=== PATIENT | female | born 1995 | race African-American/Black ===

== ENCOUNTER 2018-01-11 17:05 | Emergency (ER) | payer OTHER ==
[2018-01-11] MEDS: KETOROLAC 30 MG/ML VIAL (J1885) IV (19:24)
[2018-01-11] MEDS: NS 500 ML IV (19:24)
[2018-01-11 20:22] LABS: HEMATOCRIT 37.6 % (36.0-47.0); HEMOGLOBIN 11.8 g/dl (12.0-16.0); MEAN CORPUSCULAR HEMOGLOBIN 25.8 pg (27.0-33.0); MEAN CORPUSCULAR HGB CONC 31.4 g/dl (32.0-36.5); MEAN CORPUSCULAR VOLUME 82.1 fl (80.0-96.0); PLATELET COUNT, AUTOMATED 471 10^3/uL (150-450); RED BLOOD COUNT 4.58 10^6/uL (4.00-5.40); RED CELL DISTRIBUTION WIDTH 13.5 % (11.5-14.5); WHITE BLOOD COUNT 10.8 10^3/uL (4.0-10.0)
[2018-01-11 20:25] LABS: POSITIVE DIFF POS FLAG
[2018-01-11 20:26] LABS: ADD MANUAL DIFFER YES; DIFF SLIDE NUMBER 302
[2018-01-11 20:34] LABS: ANION GAP 8 MEQ/L (8-16); CALCIUM LEVEL 9.1 MG/DL (8.5-10.1); CARBON DIOXIDE LEVEL 29 MEQ/L (21-32); CHLORIDE LEVEL 103 MEQ/L (98-107); CPK CREATINE PHOSPHOKINASE 50 U/L (26-192); CREATININE FOR GFR 0.73 MG/DL (0.55-1.30); GLOMERULAR FILTRATION RATE > 60.0 (>60); GLUCOSE, FASTING 91 MG/DL (70-100); POTASSIUM SERUM 4.2 MEQ/L (3.5-5.1); SODIUM LEVEL 140 MEQ/L (136-145); TROPONIN I < 0.02 NG/ML (< 0.10)
[2018-01-11 20:40] LABS: BLOOD UREA NITROGEN 9 MG/DL (7-18)
[2018-01-11 21:00] LABS: BASOPHILS 1 % (0-4); EOSINOPHILS 18 % (0-5); LYMPHOCYTES 43 % (16-52); MONOCYTES 5 % (0-8); NEUTROPHILS 33 % (35-75); PLATELET ESTIMATE INCREASED (NORMAL)
[2018-01-11] MEDS: MORPHINE 2 MG/ML 1ML SYRINGE (J2270) IV (21:00)
[2018-01-11 21:32] LABS: CONTROL LINE HCG INT CTR LINE PRESENT; HCG, SERUM QUALITATIVE NEGATIVE (NEGATIVE)
[2018-01-11] MEDS ORDERED: ISOVUE-370 76% 100ML VIAL (Q9967) As Ordered (21:59)
== END 2018-01-11 23:25 | disposition home or self-care (01) ==
LOC: M ED 17:05
DX: M94.0 Chondrocostal junction syndrome [Tietze] (principal)
CPT/HCPCS: Q9967

== ENCOUNTER → 2018-03-12 | Outpatient (REF) | payer OTHER | LOC: M SFHCLERA 12:01 | DX: J02.9 Acute pharyngitis, unspecified (principal) ==

== ENCOUNTER → 2018-08-29 | Outpatient (REF) | payer OTHER | LOC: M SFHCLERA 17:20 | DX: R30.0 Dysuria (principal) ==

== ENCOUNTER 2018-10-28 01:46 | Emergency (ER) | payer OTHER ==
[2018-10-28] MEDS: NS 500 ML IV (03:14)
[2018-10-28] MEDS: MORPHINE 4 MG/ML 1ML VIAL/SYRINGE (J2270) IV (03:15)
[2018-10-28 03:30] LABS: CONTROL LINE HCG INT CTR LINE PRESENT; HCG, SERUM QUALITATIVE NEGATIVE (NEGATIVE)
[2018-10-28 03:40] LABS: ALBUMIN 3.4 GM/DL (3.2-5.2); ALBUMIN/GLOBULIN RATIO 0.81 (1.00-1.93); ALKALINE PHOSPHATASE 176 U/L (45-117); ALT/SGPT 27 U/L (12-78); ANION GAP 9 MEQ/L (8-16); AST/SGOT 13 U/L (7-37); BILIRUBIN,DIRECT < 0.1 MG/DL (0.0-0.2); BILIRUBIN,TOTAL 0.2 MG/DL (0.2-1.0); BLOOD UREA NITROGEN 8 MG/DL (7-18); CALCIUM LEVEL 8.6 MG/DL (8.5-10.1); CARBON DIOXIDE LEVEL 24 MEQ/L (21-32); CHLORIDE LEVEL 107 MEQ/L (98-107); CREATININE FOR GFR 0.77 MG/DL (0.55-1.30); GLOMERULAR FILTRATION RATE > 60.0 (>60); GLUCOSE, FASTING 106 MG/DL (70-100); LIPASE 150 U/L (73-393); POTASSIUM SERUM 3.9 MEQ/L (3.5-5.1); SODIUM LEVEL 140 MEQ/L (136-145); TOTAL PROTEIN 7.6 GM/DL (6.4-8.2)
== END 2018-10-28 08:16 | disposition home or self-care (01) ==
LOC: M ED 01:46
DX: K80.20 Calculus of gallbladder without cholecystitis without obstruction (principal); I10 Essential (primary) hypertension; Z86.19 Personal history of other infectious and parasitic diseases; Z79.899 Other long term (current) drug therapy
CPT/HCPCS: J2270

== ENCOUNTER 2018-11-08 10:04 | Day surgery (SDC) | payer OTHER ==
[~2018-11-08] VITALS: Ht 167.6 cm; Wt 133.4 kg
[~2018-11-08 10:04] MED LIST: AMLO10TA4 PO; BCP PO; BENA25CA4 PO; KETO10TAB PO; LOSA25TA33 PO; NORG1TAB PO; NS 1,000 ML IV ONE; OMEP20CA3 PO
[2018-11-08] MEDS ORDERED: fentaNYL 100 MCG/2 ML INJECTION (J3010) As Ordered ONE (10:47)
[2018-11-08] MEDS ORDERED: LIDOCAINE 2% INJ 100 MG/5 ML SDV (FOR ANES.) As Ordered ONE (10:47)
[2018-11-08] MEDS ORDERED: PROPOFOL 200 MG/20 ML VIAL As Ordered ONE ×2 (10:47→11:47)
--- NOTE | 2018-11-08 11:49 | ROOR ---
Patient Name: Cam Cristina Procedure Date: 11/08/2018 11:34 AM Date of : 1995 Age: 23 Room: [facility] Gender: Female Note Status: Finalized Procedure: Upper GI endoscopy Indications: Previously treated for Helicobacter pylori Providers: DO Eliot Boogie MD: KAELA SHERWOOD MD Requesting Provider: Medicines: Propofol per Anesthesia Complications: No immediate complications. Procedure: Pre-Anesthesia Assessment: - Prior to the procedure, a History and Physical was performed, and patient medications and allergies were reviewed. The patient is competent. The risks and benefits of the procedure and the sedation options and risks were discussed with the patient. All questions were answered and informed consent was obtained. Patient identification and proposed procedure were verified by the physician, the nurse, the anesthesiologist and the metallurgical engineering technician in the endoscopy suite. Mental Status Examination: alert and oriented. Airway Examination: normal oropharyngeal airway and neck mobility. Respiratory Examination: clear to auscultation. CV Examination: normal. Prophylactic Antibiotics: The patient does not require prophylactic antibiotics. Prior Anticoagulants: The patient has taken no previous anticoagulant or antiplatelet agents. ASA Grade Assessment: II - A patient with mild systemic disease. After reviewing the risks and benefits, the patient was deemed in satisfactory condition to undergo the procedure. The anesthesia plan was to use monitored anesthesia care (MAC). Immediately prior to administration of medications, the patient was re-assessed for adequacy to receive sedatives. The heart rate, respiratory rate, oxygen saturations, blood pressure, adequacy of pulmonary ventilation, and response to care were monitored throughout the procedure. The physical status of the patient was re-assessed after the procedure. The Endoscope was introduced through the mouth, and advanced to the second part of duodenum. The upper GI endoscopy was accomplished without difficulty. The patient tolerated the procedure well. Findings: Diffuse minimal inflammation characterized by erythema was found in the prepyloric region of the stomach. Biopsies were taken with a cold forceps for Helicobacter pylori testing. Estimated blood loss was minimal. The exam was otherwise without abnormality. Impression: - Gastritis. Biopsied. - The examination was otherwise normal. Recommendation: - Patient has a contact number available for emergencies. The signs and symptoms of potential delayed complications were discussed with the patient. Return to normal activities tomorrow. Written discharge instructions were provided to the patient. - Return to my office in 1 week. - Telephone my office for pathology results in 1 week. Tristen Starks DO 11/08/2018 11:48:42 AM This report has been signed electronically. Number of Addenda: 0 Note Initiated On: 11/08/2018 11:34 AM Estimated Blood Loss: Estimated blood loss was minimal.
[2018-11-08 12:15] VITALS: BP 114/92
== END 2018-11-08 13:00 | disposition home or self-care (01) ==
LOC: M OPP 10:04
PROVIDERS: ATTEND Surgery
DX: K29.70 Gastritis, unspecified, without bleeding (principal); B96.81 Helicobacter pylori [H. pylori] as the cause of diseases classified elsewhere; R12 Heartburn; K80.20 Calculus of gallbladder without cholecystitis without obstruction; I10 Essential (primary) hypertension; G47.9 Sleep disorder, unspecified; Z79.899 Other long term (current) drug therapy
CPT/HCPCS: 43239; 88305; J3010

== ENCOUNTER → 2019-06-10 | Outpatient (REF) | payer OTHER ==
[~2019-06-10] MED LIST changes: -AMLO10TA4 PO; +AMLO10TA5 PO; +LOSA25TA14 PO; -LOSA25TA33 PO; -NS 1,000 ML IV ONE; -OMEP20CA3 PO; +OMEP20CA4 PO
== END ==
LOC: M SFHCLERA 11:53
PROVIDERS: ATTEND Nurse Practitioner Family
DX: J02.9 Acute pharyngitis, unspecified (principal)

== ENCOUNTER → 2019-07-09 | Outpatient (REF) | payer OTHER | LOC: M SFHCLERA 12:23 | PROVIDERS: ATTEND Nurse Practitioner Family | DX: J02.9 Acute pharyngitis, unspecified (principal) ==

== ENCOUNTER → 2019-09-22 | Outpatient (REF) | payer OTHER ==
[~2019-09-22] MED LIST changes: -NORG1TAB PO; +NORG1TAB4 PO
== END ==
LOC: M SFHCLERA 10:44
PROVIDERS: ATTEND Physician Assistant
DX: R50.9 Fever, unspecified (principal)

== ENCOUNTER → 2019-10-16 | Outpatient (CLI) | payer OTHER ==
--- NOTE | 2019-10-22 12:00 | SLEEPHOME ---
DATE OF PROCEDURE: 10/16/2019 ORDERED BY: Dr. Quintana Nocturnal home sleep testing was performed due to concern for the obstructive sleep apnea syndrome in this patient with a history of snoring. For testing, a nocturnal T3 respiratory monitoring device was used. Continuous record made of pulse, oxygen saturation, airflow, chest and abdominal strain, and body position. 9 hours and 59 minutes of data were reviewed. There were 6 hours and 29 minutes marked as time in bed. During the interval marked time in bed, there were 53 respiratory events identified of 10 seconds in duration or greater for a respiratory event index of 8.2. The events were primarily obstructive. Six mixed and central apneas were seen. Baseline pulse rate 66 beats per minute, pulse rate ranged 76-118. Baseline saturation 96%. Saturations fell to 85%. Testing was performed in both supine and nonsupine positions. IMPRESSION: Abnormal home sleep testing with repetitive respiratory events and oxygen desaturations to 85% with a respiratory event index of 8.2 is consistent with the obstructive sleep apnea syndrome. RECOMMENDATIONS: The patient should be encouraged to undergo formal sleep evaluation.
== END ==
LOC: M SLEEP HO 10-12 09:39
PROVIDERS: ATTEND Internal Medicine Cardiovascular Disease
DX: R06.83 Snoring (principal)

== ENCOUNTER 2019-11-01 17:48 | Emergency (ER) | payer OTHER ==
[~2019-11-01] VITALS: Ht 167.6 cm; Wt 140.3 kg
[~2019-11-01 17:48] MED LIST changes: +OMEP-172 PO; -OMEP20CA4 PO
[2019-11-01] MEDS ORDERED: CHLO25TA PO (18:02)
[2019-11-01] MEDS ORDERED: METO1TAB32 PO (18:03)
[2019-11-01 18:59] LABS: BASO % 0.3 % (0.0-1.0); EOS # 0.1 10^3/uL (0.0-0.5); EOS % 1.2 % (0.0-3.0); HEMATOCRIT 35.9 % (36.0-47.0); HEMOGLOBIN 11.7 g/dl (12.0-15.5); LYMPH # 3.6 10^3/uL (1.5-5.0); LYMPH % 40.4 % (24.0-44.0); MEAN CORPUSCULAR HEMOGLOBIN 27.7 pg (27.0-33.0); MEAN CORPUSCULAR HGB CONC 32.6 g/dl (32.0-36.5); MEAN CORPUSCULAR VOLUME 84.9 fl (80.0-96.0); MONO # 0.8 10^3/uL (0.0-0.8); MONO % 8.3 % (0.0-5.0); NEUTROPHILS # 4.5 10^3/uL (1.5-8.5); NEUTROPHILS % 49.5 % (36.0-66.0); PLATELET COUNT, AUTOMATED 375 10^3/uL (150-450); RED BLOOD COUNT 4.23 10^6/uL (4.00-5.40)
--- NOTE | 2019-11-01 20:46 | REPVR ---
PROCEDURE INFORMATION: Exam: US First Trimester, Transabdominal Exam date and time: 11/01/2019 8:09 PM Age: 24 years old Clinical history: complicated by abdominal or pelvic pain; Lower; First trimester; Gestational age or lmp: 09/26/19; ; Additional info: Pelvic pain; Lmp- 09/26/19 TECHNIQUE: Imaging protocol: Real-time transabdominal obstetrical ultrasound of the maternal pelvis and a first trimester , less than 14 weeks 0 days, with image documentation. COMPARISON: No relevant prior studies available. FINDINGS: GESTATION: Gestation: No pole or yolk sac is identified. Heart rate: Not applicable Placenta: No subchorionic bleed. BIOMETRY: Estimated gestational age: 5 weeks 2 days Mean sac diameter: Probable small gestational sac with mean sac diameter of 0.55 cm. Estimated due date: Estimated date of delivery: 07/01/2020. MATERNAL: Uterus: Unremarkable. Cervix: Unremarkable. Right adnexa: Right ovary and adnexa are not well visualized due to bowel gas. Left adnexa: Left ovary and adnexa are not well visualized due to bowel gas. Intraperitoneal: No intraperitoneal free fluid. IMPRESSION: 1. Probable small intrauterine gestational sac with estimated gestational age 5 weeks 2 days. 2. No pole or yolk sac is seen at this time. 3. Ovaries and adnexa are not well visualized do to bowel gas. Electronically signed by: Jakub Richard On 11/01/2019 20:46:05 PM
[2019-11-01 21:18] VITALS: BP 146/89
== END 2019-11-01 21:18 | disposition home or self-care (01) ==
LOC: M ED 17:48
DX: O20.0 Threatened abortion (principal); Z3A.01 Less than 8 weeks gestation of pregnancy; Z79.899 Other long term (current) drug therapy

== ENCOUNTER 2019-12-17 18:55 | Emergency (ER) | payer OTHER ==
[~2019-12-17] VITALS: Ht 167.6 cm; Wt 140.3 kg
[~2019-12-17 18:55] MED LIST changes: +CHLO25TA PO; +METO1TAB32 PO; -OMEP-172 PO; +OMEP1CAP73 PO
[2019-12-17] MEDS ORDERED: LABE200T32 PO (19:13)
[2019-12-17] MEDS ORDERED: ACETAMINOPHEN 325 MG TAB PO ONE (21:45)
[2019-12-17 22:16] LABS: BASO % 0.2 % (0.0-1.0); EOS # 0.1 10^3/uL (0.0-0.5); EOS % 1.2 % (0.0-3.0); HEMATOCRIT 35.9 % (36.0-47.0); HEMOGLOBIN 11.4 g/dl (12.0-15.5); LYMPH # 3.2 10^3/uL (1.5-5.0); LYMPH % 37.6 % (24.0-44.0); MEAN CORPUSCULAR HEMOGLOBIN 27.7 pg (27.0-33.0); MEAN CORPUSCULAR HGB CONC 31.8 g/dl (32.0-36.5); MEAN CORPUSCULAR VOLUME 87.3 fl (80.0-96.0); MONO # 0.5 10^3/uL (0.0-0.8); MONO % 6.3 % (0.0-5.0); NEUTROPHILS # 4.7 10^3/uL (1.5-8.5); NEUTROPHILS % 54.3 % (36.0-66.0); PLATELET COUNT, AUTOMATED 342 10^3/uL (150-450); RED BLOOD COUNT 4.11 10^6/uL (4.00-5.40); WHITE BLOOD COUNT 8.6 10^3/uL (4.0-10.0)
[2019-12-17 22:41] LABS: ALBUMIN 3.2 GM/DL (3.2-5.2); ALT/SGPT 15 U/L (12-78); BILIRUBIN,DIRECT 0.1 MG/DL (0.0-0.2); BILIRUBIN,TOTAL 0.3 MG/DL (0.2-1.0); BLOOD UREA NITROGEN 8 MG/DL (7-18); CALCIUM LEVEL 8.8 MG/DL (8.5-10.1); CARBON DIOXIDE LEVEL 25 MEQ/L (21-32); CHLORIDE LEVEL 105 MEQ/L (98-107); CREATININE FOR GFR 0.69 MG/DL (0.55-1.30); GLOMERULAR FILTRATION RATE > 60.0 (>60); GLUCOSE, FASTING 83 MG/DL (70-100); MAGNESIUM LEVEL 2.1 MG/DL (1.8-2.4); SODIUM LEVEL 138 MEQ/L (136-145); TOTAL PROTEIN 7.4 GM/DL (6.4-8.2); URIC ACID 3.3 MG/DL (2.6-6.0)
--- NOTE | 2019-12-17 22:52 | REPVR ---
PROCEDURE INFORMATION: Exam: US Pelvis Limited, Transabdominal Exam date and time: 12/17/2019 10:36 PM Age: 24 years old Clinical indication: Retention of urine; Additional info: Difficulty emptying bladder; 11 weeks TECHNIQUE: Imaging protocol: Real-time transabdominal pelvic ultrasound with image documentation. Limited exam. COMPARISON: No relevant prior studies available. FINDINGS: Uterus/cervix: Note is made of a gravid uterus. Bladder: Bladder appears unremarkable. Bilateral ureteral jets demonstrated. IMPRESSION: Unremarkable evaluation of the bladder. Postvoiding views not obtained. Further evaluation with pre and post voiding images of the bladder suggested if clinically desired. Electronically signed by: Kashmir Dupree On 12/17/2019 22:51:37 PM
--- NOTE | 2019-12-17 22:53 | REPVR ---
PROCEDURE INFORMATION: Exam: US First Trimester, Transabdominal Exam date and time: 12/17/2019 10:36 PM Age: 24 years old Clinical indication: Lmp or gestational age (in weeks): Lmp 09/26/19; Other: Diffuculty emptying bladder; ; Additional info: Difficulty emptying bladder; 11 weeks TECHNIQUE: Imaging protocol: Real-time transabdominal obstetrical ultrasound of the maternal pelvis and a first trimester , less than 14 weeks 0 days, with image documentation. COMPARISON: BLADDER (LIMITED PELVIC) US 12/17/2019 10:21 PM FINDINGS: GESTATION: Gestation: Single gestational sac in the uterus. Single living intrauterine gestation demonstrated within the gestational sac. Heart rate: heart rate 162 bpm. Placenta: Posterior placenta. Amniotic fluid: Amniotic and chorionic fluid are normal for gestational age. BIOMETRY: Estimated gestational age: Gestational age based on crown-rump length is 12 weeks 0 days versus 11 weeks 5 days using LMP of 10/27/2019. [place]-Rump length: [place]-rump length measures 5.4 cm. Estimated due date: PAPA is 06/30/2020 using ultrasound measurements. MATERNAL: Uterus: Unremarkable. Cervix: Unremarkable. Right adnexa: Unremarkable. Left adnexa: Unremarkable. Intraperitoneal: No intraperitoneal free fluid. IMPRESSION: Unremarkable scan at 12 weeks. Detailed structural survey can be performed between 19-20 weeks if clinically desired. Electronically signed by: Kashmir Dupree On 12/17/2019 22:53:18 PM
[2019-12-17] MEDS ORDERED: MIRA3350 PO (23:29)
[2019-12-17] MEDS ORDERED: KEFL500C17 PO (23:29)
[2019-12-17 23:52] VITALS: BP 134/89
--- NOTE | 2019-12-18 20:52 | ECGEPIP ---
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
== END 2019-12-17 23:54 | disposition home or self-care (01) ==
LOC: M ED 18:55
DX: O16.1 Unspecified maternal hypertension, first trimester (principal); O99.611 Diseases of the digestive system complicating pregnancy, first trimester; K59.00 Constipation, unspecified; O23.41 Unspecified infection of urinary tract in pregnancy, first trimester; R82.79 Other abnormal findings on microbiological examination of urine; Z3A.12 12 weeks gestation of pregnancy; Z79.899 Other long term (current) drug therapy